=== PATIENT | female | born 1980 | race Caucasian/White ===

== ENCOUNTER 2018-11-20 12:08 | Inpatient (IN) | payer BC ==
[~2018-11-20] VITALS: Ht 162.6 cm; Wt 78.5 kg
[~2018-11-20 12:08] MED LIST: COLACE100 MG; IBUPROFEN 600600 M1; PRENATAL
[2018-11-20 12:17] VITALS: BP 119/82
[2018-11-20 13:21] LABS: ABSOLUTE EOSINOPHILS 0.1 thou/uL (0.0-0.7); ABSOLUTE LYMPHOCYTES 1.5 thou/uL (0.8-5.3); ABSOLUTE MONOCYTES 1.1 thou/uL (0.0-1.2); ABSOLUTE NEUTROPHILS 11.2 thou/uL (1.6-8.1); BASOPHILS 0.4 %; EOSINOPHILS 0.6 %; HEMATOCRIT 38.8 % (37.0-47.0); HEMOGLOBIN 13.1 gm/dL (12.0-15.0); LYMPHOCYTES 10.6 %; MCH 29.1 pg (26.0-34.0); MCHC 33.8 g/dL (28.0-37.0); MCV 86.1 fL (80.0-100.0); MONOCYTES 7.8 %; MPV 8.5 fl. (7.2-11.1); NUCLEATED RBCS 0 /100WBC; PLATELET COUNT* 377 thou/uL (150-400); POLYS 80.6 %; RBC 4.51 mil/uL (4.20-5.00); RDW-CV 13.3 % (10.5-14.5); WBC 13.8 thou/uL (4.0-11.0)
[2018-11-20 13:37] LABS: CALCIUM 9.7 mg/dL (8.5-10.1); CREATININE 0.8 mg/dL (0.6-1.3)
[2018-11-20 13:44] LABS: POTASSIUM 2.8 mmol/L (3.5-5.1)
[2018-11-20 13:50] LABS: TOTAL BILIRUBIN 0.4 mg/dL (<0.1-1.0); TOTAL PROTEIN 8.2 g/dL (6.4-8.2)
[2018-11-20 16:05] VITALS: BP 115/77
[2018-11-20 20:20] VITALS: BP 116/79
[2018-11-20 22:17] LABS: URINE BILIRUBIN NEGATIVE (Negative); URINE BLOOD NEGATIVE (Negative); URINE CLARITY CLEAR; URINE COLOR YELLOW; URINE GLUCOSE-RANDOM NEGATIVE (Negative); URINE KETONES TRACE (Negative); URINE LEUKOCYTES NEGATIVE (Negative); URINE NITRITE NEGATIVE (Negative); URINE PROTEIN NEGATIVE (Negative); URINE UROBILINOGEN 0.2 E.U./dl (0.2-1.0)
[2018-11-21 00:44] VITALS: BP 108/70
[2018-11-21 04:38] LABS: HEMATOCRIT 32.8 % (37.0-47.0); MCH 29.1 pg (26.0-34.0); MCHC 33.7 g/dL (28.0-37.0); MCV 86.3 fL (80.0-100.0); MPV 7.8 fl. (7.2-11.1); RBC 3.8 mil/uL (4.20-5.00); RDW-CV 13.2 % (10.5-14.5)
[2018-11-21 05:01] VITALS: BP 115/77
[2018-11-21 05:02] LABS: CALCIUM 8.6 mg/dL (8.5-10.1); CREATININE 0.6 mg/dL (0.6-1.3); MAGNESIUM 2.3 mg/dL (1.8-2.4); POTASSIUM 3.6 mmol/L (3.5-5.1)
[2018-11-21 05:06] LABS: HEMOGLOBIN 11.1 gm/dL (12.0-15.0)
[2018-11-21 08:00] VITALS: BP 141/82
[2018-11-21 11:45] VITALS: BP 105/73
--- NOTE | 2018-11-21 12:25 | EKG ---
[place] [address] ELECTROCARDIOGRAM REPORT Name: DOYLE BUTTS Room: [address] IN [facility]#: [id number] Admission: 11/20/18 Attend Phys: Hiren Yang, Discharge: Date of : 84 Report #: [id number] THIS REPORT FOR: //name// [facility] ED Test Date: 2018-11-20 Test Time: 15:07:19 Pat Name: DOYLE BUTTS Department: Room: [facility] Gender: F Professor Of Biological Sciences: : 1980 Requested By: Rose Marie Dodd Order Number: [id number] MD: Michael Davis Measurements Intervals [place] Rate: 108 P: 42 ND: 158 QRS: 13 QRSD: 76 T: -5 QT: 343 QTc: 460 Interpretive Statements Sinus tachycardia Nonspecific T abnormalities, anterior leads No previous ECG available for comparison Electronically Signed On 11-21-2018 12:25:36 PAINT AND TABLE EDGER by Michael Davis [email or web address] <ELECTRONICALLY SIGNED> By: Michael Davis MD, [facility] 11/21/18 1225 1507 [id number] Michael Davis MD, [facility] /EPI
[2018-11-21] MEDS ORDERED: AZITHROMYCIN 2250 MG PO (13:36)
[2018-11-21] MEDS ORDERED: CEFDINIR300 MG PO (13:59)
[2018-11-21 14:02] VITALS: BP 105/73
== END 2018-11-21 14:40 | disposition home or self-care (01) | DRG 194 ==
LOC: M.ERS 12:08 → M.TBA-ER 14:16 → M.2W 16:10
PROVIDERS: Nurse Practitioner Family; ADMIT Family Medicine
DX: J18.9 Pneumonia, unspecified organism (principal); R65.10 Systemic inflammatory response syndrome (SIRS) of non-infectious origin without acute organ dysfunction; E87.6 Hypokalemia; Z28.21 Immunization not carried out because of patient refusal; Z79.899 Other long term (current) drug therapy